=== PATIENT | male | born 1985 ===

== ENCOUNTER 2016-06-08 09:48 | Emergency (ER) | payer OTHER, MEDICAID ==
[2016-06-08 10:16] VITALS: BP 105/75; PULSE 115; RESP 24; TEMP 99; O2SAT 92
--- NOTE | 2016-06-08 10:22 | UCPHY ---
H & P Time Seen by Provider: 06/08/16 10:13 Patient Type: Established HPI/ROS: 31-year-old male presents complaining of slipped on ice landing directly on his buttocks approximately 6 days ago. He states he has been studying YouTube videos and is concerned that he may have a fractured tailbone. He denies rectal pain with defecation he denies rectal bleeding. Review of systems General no fever no chills no weakness HEENT no eye pain no eye discharge. No eye redness, no sore throat Respiratory no cough, no shortness of breath Cardiac no chest pain, no peripheral edema GI no abdominal pain, no diarrhea, no constipation, no nausea, no vomiting no flank pain, no hematuria, no dysuria Musculoskeletal positive myalgias, positive joint pain Heme no easy bruising, no easy bleeding Endo no polyuria, no polydipsia Skin no rashes, no pruritus Neuro no syncope, no dizziness, no headaches Psych is no suicidal ideation, no homicidal ideation Past Medical/Surgical History: Hypertension GERD Obesity Social History: Denies alcohol and drug use Smoking Status: Never smoked Physical Exam: 31-year-old male alert and oriented no acute distress nontoxic appearance, afebrile Lying on his side on the gurney Alert and oriented in no acute distress nontoxic appearance, afebrile Atraumatic normocephalic Neck no JVD Lungs clear to auscultation, no respiratory distress Heart regular rate and rhythm Back-no ecchymoses no swelling no step-offs positive exquisite tenderness at superior aspect of the gluteal cleft radiating to anus Extremities no cyanosis clubbing edema Gait intact Constitutional: Initial Vital Signs Temperature (C) 37.2 C 06/08/16 10:13 Heart Rate 115 H 06/08/16 10:13 Respiratory Rate 24 H 06/08/16 10:13 Blood Pressure 105/75 06/08/16 10:13 O2 Sat (%) 92 06/08/16 10:13 O2 Delivery Mode Room Air Allergies/Adverse Reactions: hydrocodone Allergy (Verified 06/08/16 10:13) Home Medications: Medication Instructions Recorded Chlorthalidone 25 mg 10/21/09 OMEPRAZOLE 10/21/09 Lisinopril 06/09/11 Docusate Sodium [Colace 100 MG (*)] 100 mg PO BID #60 cap 06/08/16 Lidocaine [Lidocaine 5% oint] 1 gm TP BID PRN #50 oint...g. 06/08/16 Medical Decision Making - Diagnostics Imaging: Sacrum coccyx x-ray Negative for fracture ED Course/Re-evaluation: Patient seen and evaluated for tailbone pain Physical exam significant for point tenderness at gluteal cleft superior aspect radiating to anus No rectal bleeding X-ray negative for fracture Impression Coccyx contusion Plan Stool softener Lidocaine 5% topical twice daily Follow-up primary care physician Departure - Departure Disposition: Home, Routine, Self-Care Clinical Impression: Coccyx contusion Condition: Good Instructions: Coccyx Injury (ED) Referrals: Eric Aponte MD [Primary Care Provider] - As per Instructions Prescriptions: Docusate Sodium [Colace 100 MG (*)] 100 mg PO BID #60 cap Lidocaine [Lidocaine 5% oint] 1 gm TP BID PRN #50 oint...g. PRN Reason: Pain, Severe - PQRS PQRS Measurement: Not applicable
--- NOTE | 2016-06-08 11:38 | DX ---
Sacrum and Coccyx, 3 Views Clinical Indications: Pain following trauma; patient fell on tailbone one week ago. Findings: A definite fracture is not identified. The bones have normal alignment. Soft tissues are unremarkable. SI joints appear normal. Impression: Negative sacrum and coccyx.
== END 2016-06-08 11:58 | disposition home or self-care (01) ==
LOC: CED 09:48
DX: S30.0XXA Contusion of lower back and pelvis, initial encounter (principal); W00.0XXA Fall on same level due to ice and snow, initial encounter; I10 Essential (primary) hypertension; K21.9 Gastro-esophageal reflux disease without esophagitis
CPT/HCPCS: 72220; G0463; 99214-PO

== ENCOUNTER 2017-08-13 03:01 | Emergency (ER) | payer OTHER, MEDICAID ==
--- NOTE | 2017-08-13 03:14 | CPEKG ---
Heart Rate: 78 RR Interval: 769 P-R Interval: 168 QRSD Interval: 86 QT Interval: 368 QTC Interval: 420 P Belt: 41 QRS Belt: 76 T Wave Belt: 28 EKG Severity - NORMAL ECG - EKG Impression: SINUS RHYTHM Electronically Signed By: Ronda Rubin 15-Aug-2017 06:49:58
[2017-08-13 03:25] VITALS: TEMP 99; O2SAT 92
[2017-08-13] MEDS ORDERED: NS 1,000 ML IV ONE (03:26)
[2017-08-13 03:35] LABS: PLATELET COUNT 217 10^3/uL (150-400)
--- NOTE | 2017-08-13 04:15 | EDPHY ---
H & P Stated Complaint: CP for 3 hours. SOB, dizzy. Time Seen by Provider: 08/13/17 03:21 HPI/ROS: CC: dizzy, felt like heart was racing HPI: This 32-year-old male with past medical history including morbid obesity, hypertension, gastroesophageal reflux disease, depression/anxiety, peptic ulcer disease, sleep apnea (and states: "you should also include hypochondria on that list") presents to the emergency department tonight complaining of feeling dizzy and like his heart was racing when he stood up from the couch this evening. He has an winston on his watch and his phone that monitors his heart rate. While he was on the couch watching TV his heart rate was 58 beats per minute. He states when he got up his heart started racing really fast. He felt like he might pass out. He also admits to really "freaking out." He called 911 but ended up hanging up. He states he does not know how high his heart rate was even though he looked at his heart rate just prior to standing up. Later when he shows me the winston on his phone it appears that his heart rate had gone up to almost 100 beats per minute. His blood pressure has been fine. He states he also had some cramping discomfort in his epigastric region and lower chest that started at 11:00 p.m. 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 He denies nausea, vomiting, sweating. He was anxious but does not relay being short of breath. He has lost over 100 lb in the last year by trying to eat healthy. Although lately he feels like his mouth has been dry and he has not been taking in the same amount of fluids per day that he usually does. He denies caffeine use, alcohol use or drug use. He does Vape excessively. He also states he has sleep apnea but due to problems with his insurance he does not have a CPAP machine. He report having an upper endoscopy about 3 months ago that showed stomach ulcers. No recent illness. REVIEW OF SYSTEMS: Constitutional: No fever, no chills. Eyes: No discharge. ENT: No sore throat. Respiratory: No cough, no shortness of breath. Cardiac: See HPI. Gastrointestinal: See HPI. Genitourinary: No hematuria or dysuria. Musculoskeletal: No back pain. Skin: No rashes. Neurological: No headache. Source: Patient Exam Limitations: No limitations - Personal History Current Tetanus/Diphtheria Vaccine: Unsure Current Tetanus Diphtheria and Acellular Pertussis (TDAP): Unsure - Medical/Surgical History PMH: Past medical history includes hypertension, gastroesophageal reflux disease, depression/anxiety, peptic ulcer disease, self reported hypochondria Past surgical history denied Family history significant for father having a cholecystectomy No known drug allergies Medications include lisinopril, aspirin, Ativan p.r.n. Social history: The patient lives with his 6-year-old daughter, he does not use tobacco products, drink alcohol, use marijuana or other drugs. He denies caffeine and soda intake. Primary care physician is Dr. Myron Aponte Hx Asthma: Yes Hx Chronic Respiratory Disease: No Hx Diabetes: No Hx Cardiac Disease: No Hx Renal Disease: No Hx Cirrhosis: No Hx Alcoholism: No Hx HIV/AIDS: No Hx Splenectomy or Spleen Trauma: No Other PMH: HTN, GERD, VAPES A LOT, ASTHMA, OLD HX depression-no meds. - Social History Smoking Status: Current every day smoker - Physical Exam Exam: General Appearance: Alert, obese, anxious Eyes: Pupils equal and round no pallor or injection. ENT, Mouth: Mucous membranes are moist, no erythema or exudate. Respiratory: There are no retractions, lungs are clear to auscultation. Cardiovascular: Regular rate and rhythm. No murmurs, gallops or rubs. Gastrointestinal: Abdomen is soft with tenderness in the right upper quadrant to palpation. No rebound, guarding, or rigidity. No pulsatile masses, bowel sounds normal. Neurological: Awake and alert, sensory and motor exams grossly normal. Skin: Warm and dry, no rashes. Musculoskeletal: Neck is supple nontender. Extremities are symmetrical, full range of motion. Psychiatric: Patient is oriented X 3, there is no agitation. DIFFERENTIAL DIAGNOSIS: After history and physical exam differential diagnosis was considered for but not limited to near-syncope, SVT, dehydration, orthostatic hypotension, acute coronary syndrome, pulmonary embolism, hypothyroidism, electrolyte abnormality, anemia Constitutional: Initial Vital Signs Temperature (C) 99.0 F 08/13/17 03:05 Heart Rate 83 08/13/17 03:05 Respiratory Rate 18 08/13/17 03:05 Blood Pressure 132/71 H 08/13/17 03:05 O2 Sat (%) 92 08/13/17 03:05 O2 Delivery Mode Room Air Allergies/Adverse Reactions: hydrocodone Allergy (Intermediate, Verified 08/13/17 03:03) Itching Home Medications: Medication Instructions Recorded OMEPRAZOLE 10/21/09 Lisinopril 06/09/11 Medical Decision Making - Diagnostics EKG Interpretation: Normal sinus rhythm, heart rate 78, normal intervals, no acute ischemic changes, ED Course/Re-evaluation: The patient was seen and examined. Vital signs were reviewed. He had a borderline low oxygen saturation. His orthostatics were positive with his heart rate going up from 73 to 110 beats per minute. His EKG showed a normal sinus rhythm with a heart rate of 78 and no acute ischemic changes. CBC was normal. Comprehensive metabolic panel was normal. TSH was normal. D-dimer was normal. Troponin was normal. Patient received a L of IV fluids. He was reassured and advised follow up with his primary care provider in the next couple of days. - Data Points Laboratory Results: Laboratory Results 08/13/17 03:20 08/13/17 03:20 08/13/17 08/13/17 08/13/17 03:34 03:20 03:20 WBC 9.07 10^3/uL 10^3/uL (3.80-9.50) RBC 5.22 10^6/uL 10^6/uL (4.40-6.38) Hgb 15.0 g/dL g/dL (13.7-17.5) Hct 44.5 % % (40.0-51.0) MCV 85.2 fL fL (81.5-99.8) MCH 28.7 pg pg (27.9-34.1) MCHC 33.7 g/dL g/dL (32.4-36.7) RDW 12.8 % % (11.5-15.2) Plt Count 217 10^3/uL 10^3/uL (150-400) MPV 10.2 fL fL (8.7-11.7) Neut % (Auto) 59.8 % % (39.3-74.2) Lymph % (Auto) 29.5 % % (15.0-45.0) [place] % (Auto) 8.0 % % (4.5-13.0) Eos % (Auto) 1.8 % % (0.6-7.6) Baso % (Auto) 0.7 % % (0.3-1.7) Nucleat RBC Rel Count 0.0 % % (0.0-0.2) Absolute Neuts (auto) 5.42 10^3/uL 10^3/uL (1.70-6.50) Absolute Lymphs (auto) 2.68 10^3/uL 10^3/uL (1.00-3.00) Absolute Monos (auto) 0.73 10^3/uL 10^3/uL (0.30-0.80) Absolute Eos (auto) 0.16 10^3/uL 10^3/uL (0.03-0.40) Absolute Basos (auto) 0.06 10^3/uL 10^3/uL (0.02-0.10) Absolute Nucleated RBC 0.00 10^3/uL 10^3/uL (0-0.01) Immature Gran % 0.2 % % (0.0-1.1) Immature Gran # 0.02 10^3/uL 10^3/uL (0.00-0.10) D-Dimer < 0.27 ug/mLFEU ug/mLFEU (0.00-0.50) Sodium Potassium Chloride Carbon Dioxide Anion Gap BUN Creatinine Estimated GFR Glucose Calcium Magnesium Total Bilirubin Conjugated Bilirubin Unconjugated Bilirubin AST ALT Alkaline Phosphatase Troponin I Total Protein Albumin TSH Pending 08/13/17 03:20 WBC RBC Hgb Hct MCV MCH MCHC RDW Plt Count MPV Neut % (Auto) Lymph % (Auto) [place] % (Auto) Eos % (Auto) Baso % (Auto) Nucleat RBC Rel Count Absolute Neuts (auto) Absolute Lymphs (auto) Absolute Monos (auto) Absolute Eos (auto) Absolute Basos (auto) Absolute Nucleated RBC Immature Gran % Immature Gran # D-Dimer Sodium 142 mEq/L mEq/L (135-145) Potassium 4.0 mEq/L mEq/L (3.5-5.2) Chloride 107 mEq/L mEq/L (97-110) Carbon Dioxide 25 mEq/l mEq/l (22-31) Anion Gap 10 mEq/L mEq/L (8-16) BUN 16 mg/dL mg/dL (7-23) Creatinine 1.3 mg/dL mg/dL (0.7-1.3) Estimated GFR > 60 Glucose 127 mg/dL H mg/dL (70-100) Calcium 9.3 mg/dL mg/dL (8.5-10.4) Magnesium 1.9 mg/dL mg/dL (1.6-2.3) Total Bilirubin 0.4 mg/dL mg/dL (0.1-1.4) Conjugated Bilirubin 0.2 mg/dL mg/dL (0.0-0.5) Unconjugated Bilirubin 0.2 mg/dL mg/dL (0.0-1.1) AST 21 IU/L IU/L (17-59) ALT 28 IU/L IU/L (21-72) Alkaline Phosphatase 82 IU/L IU/L (38-126) Troponin I < 0.012 ng/mL ng/mL (0.000-0.034) Total Protein 7.0 g/dL g/dL (6.3-8.2) Albumin 4.2 g/dL g/dL (3.5-5.0) TSH Cancelled Medications Given: Discontinued Medications Sodium Chloride (Ns) 1,000 mls @ 0 mls/hr IV ONCE ONE; Wide Open PRN Reason: Protocol Stop: 08/13/17 03:27 Last Admin: 08/13/17 03:40 Dose: 1,000 mls Departure - Departure Disposition: Home, Routine, Self-Care Clinical Impression: Orthostatic lightheadedness Condition: Good Instructions: Dehydration (ED), Anxiety (ED) Additional Instructions: Drink plenty of fluids. Follow up with your doctor in the next couple of days. Remember to tell him about the intermittent discomfort in your right upper abdomen. You may need an ultrasound of your gallbladder at some point. Also discuss your sleep apnea and difficulty getting CPAP. Return to the ER if any further problems or concerns. Referrals: Eric Aponte MD [Medical Doctor] - 2-3 days, call for appt.
[2017-08-13 04:35] VITALS: BP 109/61; PULSE 67; RESP 18
== END 2017-08-13 05:05 | disposition home or self-care (01) ==
LOC: CED 03:01
DX: R42 Dizziness and giddiness (principal); E86.9 Volume depletion, unspecified; I10 Essential (primary) hypertension; J45.909 Unspecified asthma, uncomplicated; F17.200 Nicotine dependence, unspecified, uncomplicated
CPT/HCPCS: 80048-PO; 80076-PO; 83735-PO; 84443-PO; 84484-PO; 85025-PO; 85378-PO

== ENCOUNTER 2018-05-11 19:50 | Emergency (ER) | payer OTHER, MEDICAID ==
[2018-05-11] MEDS ORDERED: IBUPROFEN 600 MG TAB PO ONE (20:25)
[2018-05-11] MEDS ORDERED: ONDANSETRON DISINTEGRATING 4 MG TAB PO ONE (20:25)
[2018-05-11] MEDS ORDERED: OSELTAMIVIR PHOSPHATE 75 MG CAP PO ONE (21:19)
--- NOTE | 2018-05-11 21:47 | EDPHY ---
H & P Stated Complaint: nausea and fever started today Time Seen by Provider: 05/11/18 19:54 HPI/ROS: CHIEF COMPLAINT: Fever and nausea History by patient HISTORY OF PRESENT ILLNESS: 33-year-old man with history of hypertension which the patient said resolved after losing weight presents today with acute onset subjective fever and severe nausea as well as a mild cough and runny nose which began this morning. He has some diffuse body aches and generally feels tired and unwell. Patient has a daughter who is autistic who is here for similar symptoms. He did not get a flu shot this year. He tried taking a child's dose of ibuprofen with no relief. He has not been able to eat today although he has been taking some oral fluids. He denies sore throat. He had a normal bowel movement this morning. He denies any diarrhea. He denies any rash. He has had no difficulty breathing. He does not smoke. REVIEW OF SYSTEMS: As in HPI, and all other systems reviewed and are negative Source: Patient - Personal History Current Tetanus Diphtheria and Acellular Pertussis (TDAP): No - Medical/Surgical History Hx Asthma: Yes Hx Chronic Respiratory Disease: No Hx Diabetes: No Hx Cardiac Disease: No Hx Renal Disease: No Hx Cirrhosis: No Hx Alcoholism: No Hx HIV/AIDS: No Hx Splenectomy or Spleen Trauma: No Other PMH: HTN, GERD, VAPES A LOT, ASTHMA, OLD HX depression-no meds. - Social History Smoking Status: Current every day smoker - Physical Exam Exam: General Appearance: Alert, obese, nontoxic-appearing, anxious Head: normocephalic, atraumatic Eyes: Pupils equal and round, reactive to light, no pallor or injection. Mouth: Mucous membranes moist. Oropharynx clear Neck: No bony tenderness, full range of motion, no cervical adenopathy Respiratory: Normal, effort, lungs are clear to auscultation. No wheezes, rales or rhonchi. Cardiovascular: Regular rate and rhythm. S1, S2, no murmurs, gallops or rubs appreciated Gastrointestinal: Abdomen is soft and nontender, no masses, bowel sounds normal. Back: No CVA tenderness, no bony tenderness Neurological: Awake, alert and oriented x 3, cranial nerves 2-12 intact, no pronator drift, normal gait, Skin: Warm and dry, no rashes. Musculoskeletal: No deformities or tenderness. Extremities: full range of motion, no edema, DP2+ bilat Psychiatric: Patient has normal affect, there is no agitation. Constitutional: Initial Vital Signs Temperature (C) 37.1 C 05/11/18 20:10 Heart Rate 112 H 05/11/18 20:10 Respiratory Rate 16 05/11/18 20:10 Blood Pressure 137/87 H 05/11/18 20:10 O2 Sat (%) 93 05/11/18 20:10 O2 Delivery Mode Room Air Allergies/Adverse Reactions: hydrocodone Allergy (Intermediate, Verified 08/13/17 03:03) Itching Home Medications: Medication Instructions Recorded Aspirin 81mg (*) 05/11/18 Ondansetron Odt [Zofran Odt 4 mg 4 mg PO Q4 PRN #12 tab 05/11/18 (*)] Oseltamivir Phosphate [Tamiflu 75 75 mg PO BID #10 cap 05/11/18 mg (*)] Medical Decision Making ED Course/Re-evaluation: 33-year-old man presents with subjective fever and nausea a body aches along with a daughter with similar symptoms. Influenza a test is positive. Patient was given ibuprofen, oral Zofran and fluids. He was given initial dose of Tamiflu. On re-evaluation, he was feeling better and taking oral fluids without difficulty. There is no evidence of respiratory compromise or serious systemic toxicity. Patient was very anxious about his diagnosis. We discussed home care and return precautions. - Data Points Medications Given: Discontinued Medications Ibuprofen (Motrin) 600 mg PO EDNOW ONE Stop: 05/11/18 20:26 Last Admin: 05/11/18 20:35 Dose: 600 mg Ondansetron HCl (Zofran Odt) 4 mg PO EDNOW ONE Stop: 05/11/18 20:26 Last Admin: 05/11/18 20:35 Dose: 4 mg Oseltamivir Phosphate (Tamiflu) 75 mg PO EDNOW ONE Stop: 05/11/18 21:20 Last Admin: 05/11/18 21:46 Dose: 75 mg Point of Care Test Results: Influenza PCR Flu Nasal Swab Collection Date 05/11/18 Flu Nasal Swab Collection Time 20:30 Influenza A Result Detected Influenza B Result Not Detected Departure - Departure Disposition: Home, Routine, Self-Care Clinical Impression: Influenza A Condition: Good Instructions: Influenza (ED) Additional Instructions: You were seen by Dr. Rosamaria Stallings. Take ibuprofen 400-600mg 4 times daily and Tylenol 500-1000mg every 6 hours as needed for fever and/or pain. Use a humidifier in the room where you sleep. Try hot drinks with honey for cough and sore throat. Take Tamiflu as instructed. Return for any worsening or new concerns. Referrals: Patient,NotPresent [Primary Care Provider] - As per Instructions Stand Alone Forms: Work Excuse Prescriptions: Ondansetron Odt [Zofran Odt 4 mg (*)] 4 mg PO Q4 PRN #12 tab PRN Reason: Nausea and vomiting Oseltamivir Phosphate [Tamiflu 75 mg (*)] 75 mg PO BID #10 cap
[2018-05-11 21:58] VITALS: BP 129/81
== END 2018-05-11 22:16 | disposition home or self-care (01) ==
LOC: CED 19:50
DX: J09.X2 Influenza due to identified novel influenza A virus with other respiratory manifestations (principal); R11.0 Nausea; J45.909 Unspecified asthma, uncomplicated; F17.200 Nicotine dependence, unspecified, uncomplicated; I10 Essential (primary) hypertension; K21.9 Gastro-esophageal reflux disease without esophagitis